=== PATIENT | male | born 1990 | race Caucasian/White ===

== ENCOUNTER 2018-01-02 21:43 | Emergency (ER) | payer MEDICAID ==
[~2018-01-02] VITALS: Ht 170.2 cm; Wt 81.4 kg
[2018-01-02 21:56] VITALS: Ht 170.2 cm; Wt 81.4 kg
[2018-01-02 23:08] VITALS: BP 140/80
== END 2018-01-02 23:08 | disposition home or self-care (01) ==
LOC: ED 21:43
DX: R21 Rash and other nonspecific skin eruption (principal); I10 Essential (primary) hypertension
CPT/HCPCS: J7512

== ENCOUNTER 2019-03-22 10:56 | Emergency (ER) | payer MEDICAID ==
[~2019-03-22] VITALS: Ht 172.7 cm; Wt 82.6 kg
[2019-03-22 11:06] VITALS: BP 127/81; Ht 172.7 cm; Wt 82.6 kg
== END 2019-03-22 11:31 | disposition home or self-care (01) ==
LOC: ED 10:56
DX: R21 Rash and other nonspecific skin eruption (principal); F17.210 Nicotine dependence, cigarettes, uncomplicated; Z71.6 Tobacco abuse counseling
CPT/HCPCS: 99406

== ENCOUNTER 2020-05-27 17:41 | Emergency (ER) | payer MEDICAID ==
[~2020-05-27] VITALS: Ht 172.7 cm; Wt 72.6 kg
[2020-05-27 17:42] VITALS: Ht 172.7 cm; Wt 72.6 kg
[2020-05-27 18:57] VITALS: BP 124/75
== END 2020-05-27 18:57 | disposition home or self-care (01) ==
LOC: ED 17:41
DX: F41.9 Anxiety disorder, unspecified (principal); R05 Cough